=== PATIENT | female | born 1950 | race Caucasian/White ===

== ENCOUNTER 2016-12-21 13:58 | Outpatient (CLI) | payer MEDICARE ==
--- NOTE | 2016-12-21 15:54 | BD ---
BONE DENSITOMETRY USING DEXA: Date: 12/21/16 HISTORY: Postmenopausal screening for osteoporosis. FINDINGS: Lumbar Spine: BMD (g/cm2) L1 0.866 T-Score: -1.1 Z-Score: 0.6 L2 0.873 T-Score: -1.4 Z-Score: 0.5 L3 0.847 T-Score: -2.2 Z-Score: -0.2 L4 0.767 T-Score: -2.7 Z-Score: 0.6 L1-L4 0.835 T-Score: -1.9 Z-Score: 0.0 Femoral Neck: 0.761 T-Score: -0.8 Z-Score: 0.8 Total Femur: 0.946 T-Score: 0.0 Z-Score: 1.4 There has been interval improvement of 0.8% in the bone mineral density of the lumbar spine and a re duction of 4.8% in the bone mineral density of the proximal femur since 03/31/14. The 10 year fracture risk for a major osteoporotic fracture is 8.9% and for a hip fracture is 0.9%. IMPRESSION: Osteopenia. POS: OFF
--- NOTE | 2016-12-21 16:54 | MMO ---
BILATERAL SCREENING MAMMOGRAMS: DATE: 12/21/16 Reference made to prior mammograms dating back to February 2013. This patient's mammogram was interpreted with the assistance of computer-aided detection. FINDINGS: There is heterogeneously dense breast parenchyma bilaterally, limiting the sensitivity of mammograph y and could obscure underlying pathology. There is a persistent mass, although decreased in size inv olving the lower slightly inner left breast, middle depth. Stable right axillary lymph node is seen. There is no significant interval detrimental change identified. IMPRESSION: BIRADS 2: Benign Finding(s) Annual screening mammography is recommended. POS: ROJAS
== END 2016-12-21 13:59 | disposition home or self-care (01) ==
LOC: MAMMO 13:58
PROVIDERS: ATTEND Family Medicine
DX: Z12.31 Encounter for screening mammogram for malignant neoplasm of breast (principal); M81.0 Age-related osteoporosis without current pathological fracture; M85.88 Other specified disorders of bone density and structure, other site
CPT/HCPCS: 77080; G0202; 77067

== ENCOUNTER 2017-05-15 13:46 | Outpatient (CLI) | payer MEDICARE, OTHER ==
--- NOTE | 2017-05-15 16:11 | CT ---
NONCONTRAST ENHANCED CT IMAGES CHEST CT PULMONARY LUNG SCAN LOW DOSE SCREENING: History: [id number] of smoking with approximately 45 pack year history. Technique: Low dose high resolution CT chest was performed with coronal and sagittal reconstructions. FINDINGS: Images demonstrate some calcification of the aortic arch. No evidence of lung parenchymal lesions see n. No definite evidence of lymphadenopathy seen. Some minimal coronary artery calcifications seen. IMPRESSION: Lung rads category 1 - negative exam. POS: CET
== END 2017-05-15 13:47 | disposition home or self-care (01) ==
LOC: CT 13:46
PROVIDERS: ATTEND Family Medicine
DX: Z12.2 Encounter for screening for malignant neoplasm of respiratory organs (principal); F17.210 Nicotine dependence, cigarettes, uncomplicated
CPT/HCPCS: G0297

== ENCOUNTER 2017-10-04 11:11 | Outpatient (CLI) | payer MEDICARE | END 2017-10-04 11:12 | disposition home or self-care (01) | LOC: BICULT 11:11 | PROVIDERS: ATTEND Urology | DX: N28.1 Cyst of kidney, acquired (principal) | CPT/HCPCS: 76770 ==

== ENCOUNTER 2018-01-29 13:20 | Outpatient (CLI) | payer MEDICARE | END 2018-01-29 13:21 | disposition home or self-care (01) | LOC: BICMAMMO 13:20 | PROVIDERS: ATTEND Family Medicine | DX: Z12.31 Encounter for screening mammogram for malignant neoplasm of breast (principal); Z80.3 Family history of malignant neoplasm of breast | CPT/HCPCS: 77063; 77067 ==

== ENCOUNTER 2018-09-27 10:47 | Outpatient (CLI) | payer MEDICARE, OTHER ==
--- NOTE | 2018-09-27 14:40 | CT ---
CT PULMONARY LUNG SCAN WITHOUT CONTRAST: INDICATION: History of nicotine abuse with 1.5 pack a day smoking history. Current smoker with [id number] hist ory. COMPARISON: Prior CT pulmonary lung scan dated 05/15/2017. FINDINGS: There are new patchy areas of tree-in-bud nodularity seen within portions of the lateral right middle lobe and posterior right upper lobe. There are also patchy areas of tree-in-bud nodularity seen wit hin the left upper lobe. There are hazy areas of ground-glass opacity seen throughout both lungs. N o confluent airspace opacity is evident. There are vascular calcifications involving the coronary arteries and thoracic aorta. Visualized upp er abdomen demonstrates cholecystectomy change. Scattered degenerative and osteoarthritic change. IMPRESSION: 1. LUNG RADS Category 3 (probably benign, 1-2% chance) of lung disease. There are new sub-solid nod ules seen scattered throughout both lungs in a eery-ae-wmi-type pattern suspicious for bronchiolitis. There are hazy ground-glass opacities involving both lungs which can be seen with an alveolitis. R ecommend a short-term CT followup utilizing a routine CT of the thorax protocol in 6-8 weeks to docum ent resolution. 2. Scattered emphysema. POS: CET
== END 2018-09-27 10:48 | disposition home or self-care (01) ==
LOC: CT 10:47
PROVIDERS: ATTEND Family Medicine
DX: F17.200 Nicotine dependence, unspecified, uncomplicated (principal); R91.8 Other nonspecific abnormal finding of lung field; J43.9 Emphysema, unspecified
CPT/HCPCS: G0297

== ENCOUNTER 2018-12-04 13:41 | Outpatient (CLI) | payer MEDICARE, OTHER ==
--- NOTE | 2018-12-04 15:35 | CT ---
CT CHEST WITH CONTRAST CLINICAL INDICATION: Abnormal imaging of lung vieyra. Follow-up evaluation. Prior CT pulmonary lung screening examination demonstrated parenchymal lung abnormalities and follow-up is recommended. COMPARISON: CT pulmonary lung scans on 09/27/2018 and 05/15/2017. FINDINGS: Aorta: Vascular calcifications are seen in the thoracic aorta, the thoracic aorta is normal in calibe r without evidence of an aortic dissection. Lungs: Again noted are mild scattered patchy groundglass densities within the lungs bilaterally. The previously described slight reticulonodular densities in the lateral aspect of the right middle lobe are also again seen appear similar to the prior study as well as study on 05/15/2017. There are s ubpleural nodular densities seen at the posterior aspect left lower lobe with minimal reticulonodular densities seen in the region of the superior segment of the right lower lobe. These a reas were not definitively seen on prior studies. Mediastinum: There is no evidence of lymphadenopathy. Thyroid gland: Prominent size but stable in appearance from prior studies; no discrete thyroid nodule is seen. Osseous structures: Mild degenerative changes are seen in the spine. Chest wall: There is a hyperdense mass seen within the left breast. A mass was seen in the the left b reast on prior mammogram on 12/21/2016 as well as mammogram on 01/29/2018. Upper abdomen: Postcholecystectomy changes are noted. Subcentimeter exophytic hypodense lesions are a gain seen involving the visualized kidneys bilaterally. Vascular calcifications are seen in the visualized proximal abdominal aorta. IMPRESSION: 1. Scattered mild groundglass densities seen throughout the lungs bilaterally with a few minimal reti culonodular densities in the right middle lobe and each lower lobe. Findings may be related to infectious or inflammatory process. Clinical correlation is suggested. Follow-up evaluation is also r ecommended as clinically indicated. 2. Mass left breast. This mass was seen on prior mammograms.
== END 2018-12-04 13:42 | disposition home or self-care (01) ==
LOC: BICCT 13:41
PROVIDERS: ATTEND Family Medicine
DX: R91.8 Other nonspecific abnormal finding of lung field (principal); N63.20 Unspecified lump in the left breast, unspecified quadrant
CPT/HCPCS: 71260; 82565

== ENCOUNTER 2019-01-24 13:35 | Outpatient (CLI) | payer MEDICARE, OTHER ==
--- NOTE | 2019-01-24 14:02 | RAD ---
EXAM: Chest 2 views: HISTORY: Dyspnea COMPARISON: 05/01/2017 FINDINGS: Stable bilateral increased linear and interstitial changes. Heart size:Within normal limits. Lungs:Clear of acute process. Atherosclerotic changes of the aorta. No confluent pneumonia, overt edema, pleural effusion, pneumothorax, or other significant acute proce ss. IMPRESSION: Atherosclerosis of the aorta. No acute intrathoracic disease.
== END 2019-01-24 13:36 | disposition home or self-care (01) ==
LOC: RAD 13:35
PROVIDERS: ATTEND Internal Medicine Pulmonary Disease
DX: R06.00 Dyspnea, unspecified (principal); I70.0 Atherosclerosis of aorta
CPT/HCPCS: 71046

== ENCOUNTER 2019-11-29 13:58 | Outpatient (CLI) | payer MEDICARE, OTHER ==
--- NOTE | 2019-11-29 15:04 | MMO ---
Bilateral MAMMO Bilat Screen [facility]. CLINICAL HISTORY: Patient is 69 years old and is seen for screening. The patient has the following family history of breast cancer: cousin female, at age 40, (paternal). The patient has no personal history of cancer. VIEWS: The views performed were: bilateral craniocaudal with tomosynthesis and bilateral mediolateral oblique with tomosynthesis. FILMS COMPARED: The present examination has been compared to prior imaging studies performed at [facility] on 01/29/2018, and at [facility] on 02/27/2014, 10/28/2015 and 12/21/2016. This study has been interpreted with the assistance of computer-aided detection. MAMMOGRAM FINDINGS: The breasts are heterogeneously dense, which could obscure a lesion on mammography. There are stable benign appearing calcifications seen in both breasts. Nodularity is stable. There are no suspicious masses, suspicious calcifications, or new areas of architectural distortion. IMPRESSION: THERE IS NO MAMMOGRAPHIC EVIDENCE OF MALIGNANCY. A ROUTINE FOLLOW-UP MAMMOGRAM IN 1 YEAR IS RECOMMENDED. THE RESULTS OF THIS EXAM WERE SENT TO THE PATIENT. ACR BI-RADS Category 2 - Benign finding MAMMOGRAPHY NOTE: 1. A negative mammogram report should not delay a biopsy if a dominant of clinically suspicious mass is present. 2. Approximately 10% to 15% of breast cancers are not detected by mammography. 3. Adenosis and dense breasts may obscure an underlying neoplasm. Reported by: SALVADOR CARNEY MD Electonically Signed: [id number]
--- NOTE | 2019-11-29 15:46 | BD ---
Exam: DEXA Bone Density 11/29/19 HISTORY: Postmenopausal screening for osteoporosis. Lumbar Spine: BMD (g/cm2) T-SCORE Z-SCORE L1 0.842 -1.3 0.5 L2 0.886 -1.3 0.8 L3 0.839 -2.2 0.0 L4 0.832 -2.1 0.2 L1-L4 0.848 -1.8 0.3 Femoral Neck: 0.738 -1.0 0.8 Total Femur: 0.946 0.0 1.5 There has been interval improvement of 1.6% of the BMD of the lumbar spine. No change in the BMD of t he proximal femur since 12/21/16. The ten year fracture risk for a major osteoporotic fracture is 8.8% and for hip fracture is 1.5%. Impression: Osteopenia. POS: AH
--- NOTE | 2019-11-29 16:05 | CT ---
CT chest noncontrast low-dose screening. HISTORY: Tobacco abuse. COMPARISON: 09/27/2018. FINDINGS: Lungs remain hyperinflated with scattered mild emphysematous bullae and interstitial thicke lakia. A 0.3 cm subpleural nodule at the posterior aspect of the left upper lobe and adjacent small focus of triangular nodularity are stable. Tiny nonspecific pleural-based nodules within the left lower lobe are unchanged in appearance. No new lung mass. No pleural fluid or evidence of pneumothorax. Lack of contrast limits evaluation of the soft tissues. There is calcification at the aortic arch. No mediastinal adenopathy apparent. Within the partially visualized upper abdomen, the gallbladder surgically absent. Small exophytic cor tical cyst projecting posteriorly from the superior poles of the kidneys. IMPRESSION : Lung RADS category 2. Benign findings. Suggest routine screening. Emphysematous changes and other chronic-type findings are stable. Atherosclerosis.
== END 2019-11-29 13:59 | disposition home or self-care (01) ==
LOC: BICMAMMO 13:58
PROVIDERS: ATTEND Family Medicine
DX: Z12.31 Encounter for screening mammogram for malignant neoplasm of breast (principal); J43.9 Emphysema, unspecified; I70.90 Unspecified atherosclerosis; M85.859 Other specified disorders of bone density and structure, unspecified thigh; Z80.3 Family history of malignant neoplasm of breast; Z78.0 Asymptomatic menopausal state; F17.210 Nicotine dependence, cigarettes, uncomplicated
CPT/HCPCS: 77063; 77067; 77080; G0297

== ENCOUNTER 2020-03-16 13:48 | Outpatient (CLI) | payer MEDICARE, OTHER ==
--- NOTE | 2020-03-16 14:30 | RAD ---
RADIOGRAPH CHEST 2 VIEWS: DATE: 03/16/2020 HISTORY: 69-year-old female with dyspnea FINDINGS: There is no airspace density, pulmonary edema, pleural effusion, pneumothorax, or cardiomegaly. Inter stitial markings are diffusely prominent. No mediastinal widening. Tortuosity of descending thoracic aorta. IMPRESSION: No acute cardiopulmonary findings.
== END 2020-03-16 13:49 | disposition home or self-care (01) ==
LOC: BICRAD 13:48
PROVIDERS: ATTEND Internal Medicine Pulmonary Disease
DX: R06.00 Dyspnea, unspecified (principal)
CPT/HCPCS: 71046

== ENCOUNTER 2020-12-02 13:16 | Outpatient (CLI) | payer MEDICARE, OTHER | END 2020-12-02 13:17 | disposition home or self-care (01) | LOC: BICMAMMO 13:16 | PROVIDERS: ATTEND Family Medicine | DX: Z12.31 Encounter for screening mammogram for malignant neoplasm of breast (principal); Z80.3 Family history of malignant neoplasm of breast | CPT/HCPCS: 71271; 77063; 77067 ==

== ENCOUNTER 2022-01-31 08:33 | Outpatient (CLI) | payer MEDICARE ==
[2022-01-31] MEDS ORDERED: Iopamidol 370 76% 100 ML VIAL ONE (14:08)
== END 2022-01-31 08:34 | disposition home or self-care (01) ==
LOC: BICCT 08:33
PROVIDERS: ATTEND Internal Medicine Nephrology
DX: N18.9 Chronic kidney disease, unspecified (principal); R31.9 Hematuria, unspecified; N28.1 Cyst of kidney, acquired; K57.30 Diverticulosis of large intestine without perforation or abscess without bleeding; N83.8 Other noninflammatory disorders of ovary, fallopian tube and broad ligament; R16.0 Hepatomegaly, not elsewhere classified
CPT/HCPCS: 74178; Q9967

== ENCOUNTER 2022-02-21 14:48 | Outpatient (CLI) | payer MEDICARE, OTHER | END 2022-02-21 14:49 | disposition home or self-care (01) | LOC: BICMAMMO 14:48 | PROVIDERS: ATTEND Family Medicine | DX: Z12.31 Encounter for screening mammogram for malignant neoplasm of breast (principal); Z13.820 Encounter for screening for osteoporosis; M85.89 Other specified disorders of bone density and structure, multiple sites; Z80.3 Family history of malignant neoplasm of breast | CPT/HCPCS: 77063; 77067; 77080 ==

== ENCOUNTER 2023-02-16 15:10 | Outpatient (CLI) | payer MEDICARE, OTHER | END 2023-02-16 15:11 | disposition home or self-care (01) | LOC: BICCT 15:10 | PROVIDERS: ATTEND Internal Medicine | DX: Z12.2 Encounter for screening for malignant neoplasm of respiratory organs (principal); F17.210 Nicotine dependence, cigarettes, uncomplicated; J42 Unspecified chronic bronchitis | CPT/HCPCS: 71271 ==

== ENCOUNTER 2023-03-22 13:08 | Outpatient (CLI) | payer MEDICARE, OTHER | END 2023-03-22 13:09 | disposition home or self-care (01) | LOC: BICMAMMO 13:08 | PROVIDERS: ATTEND Family Medicine | DX: Z12.31 Encounter for screening mammogram for malignant neoplasm of breast (principal); M81.0 Age-related osteoporosis without current pathological fracture; M85.851 Other specified disorders of bone density and structure, right thigh; M85.852 Other specified disorders of bone density and structure, left thigh; Z80.3 Family history of malignant neoplasm of breast | CPT/HCPCS: 77063; 77067; 77080 ==

== ENCOUNTER 2023-12-29 13:42 | Outpatient (CLI) | payer MEDICARE, OTHER | END 2023-12-29 13:43 | disposition home or self-care (01) | LOC: BICCT 13:42 | PROVIDERS: ATTEND Internal Medicine | DX: J42 Unspecified chronic bronchitis (principal); R91.8 Other nonspecific abnormal finding of lung field | CPT/HCPCS: 71250 ==